=== PATIENT | male | born 1955 | race Caucasian/White ===

== ENCOUNTER → 2019-09-14 11:03 | Outpatient (CLI) | payer MEDICARE, BC | END | disposition home or self-care (01) | LOC: D.CT 11:03 | PROVIDERS: ATTEND Family Medicine | DX: R91.1 Solitary pulmonary nodule (principal) ==

== ENCOUNTER → 2019-11-15 08:03 | Outpatient (CLI) | payer MEDICARE, BC | END | disposition home or self-care (01) | LOC: D.HCCARDIO 08:03 | PROVIDERS: ATTEND Internal Medicine Cardiovascular Disease | DX: R06.02 Shortness of breath (principal) ==

== ENCOUNTER 2019-11-30 06:53 | Outpatient (CLI) | payer MEDICARE, BC ==
[~2019-11-30] VITALS: Ht 195.6 cm; Wt 138.6 kg
--- NOTE | ~2019-11-30 | HEMODYNAMI ---
PATIENT:LAKSHMI HALE MEDICAL RECORD: [id number] : 53 LOCATION:[facility] ADMISSION DATE: 11/30/19 Generatedon:11/30/20199:32 Patient name: LAKSHMI HALE Patient #: [id number] SSN: : 1955 Date of study: 11/30/2019 Page: Of Hemodynamic Procedure Report Patient Data Patient Demographics Procedure consent was obtained First Name: LAKSHMI Gender: Male Last Name: ALEXIA : 1955 [facility] Initial: CHAD Age: 64 year(s) Patient #: [id number] Race: Unknown Additional ID: [id number] Contact details [address]: [address] [place] [address] State: [place] City: [place] Zip code: [address] Past Medical History Allergies: No known allergies Admission Admission Data Admission Date: 11/30/2019 Admission Time: 6:53 Admit Source: Other Lab Results Lab Result Date: 11/30/2019 Lab Result Time: 0:00 Biochemistry Name Units Result Min Max BUN mg/dl 12 --(-*--)-- 7 18 Creatinine mg/dl 0.9 --(-*--)-- 0.6 1.3 eGFR ml/min 90 --(*---)-- 90 120 NONAFRICAN CBC Name Units Result Min Max Hematocrit % 42.5 --(*---)-- 42 54 Hemoglobin g/dl 15 --(-*--)-- 13.5 17.5 Procedure Procedure Types Cath Procedure Diagnostic Procedure LHC LHC w/Coronaries Sedation Charges Moderate Sedation up to 15 minutes Procedure Description Procedure Date Procedure Date: 11/30/2019 Procedure Start Time: 9:11 Procedure End Time: 9:30 Procedure Staff Name Function Saqib Garcia MD Performing Physician Yvette Garnder RT Monitor Thalia Sanchez RT Monitor Radha Leblanc RT Scrub Karis Agrawal RN Nurse Indication Dyspnea Procedure Data Cath Procedure Fluoroscopy Diagnostic fluoroscopy Total fluoroscopy Time: 3.4 time: 3.4 min min Diagnostic fluoroscopy Total fluoroscopy dose: dose: 1041 mGy 1041 mGy Contrast Material Contrast Material Type Amount (ml) Isovue 300 118 Entry Location Entry Primary Successful Side Size Upsize Upsize Entry Closure Meyers ccessful Closure Location (Fr) 1 (Fr) 2 (Fr) Remarks Device Remarks Radial Right 6 Fr Mechanical artery Short Compression Estimated blood loss: 5 ml Diagnostic catheters Device Type Used For End Catheter Placement DIAGNOSTIC [place] 110cm Procedure 5Fr catheter ([id number]) DIAGNOSTIC Nikky 5Fr Procedure catheter ([id number]) Procedure Complications No complications Procedure Medications Medication Administration Route Dosage Oxygen etCO2 Nasal cannula 2 l/min Lidocaine 2% added to field 20 Heparin Flush Bag added to field 2 bags (1000units/500ml NS) 0.9% NaCl I.V. 100 ml/hr Radial Cocktail I.A. 1 syringe (Verapamil 2mg/Nitro 400mcg/Heparin 1500units) Zofran I.V. 4 mg Versed I.V. 2 mg Fentanyl I.V. 50 mcg Versed I.V. 1 mg Fentanyl I.V. 50 mcg Hemodynamics Rest HGB: 15 (g/dl) Heart Rate: 64 (bpm) Pressure Samples Time Site Value (mmHg) Purpose Heart Use Rate(bpm) 9:16 LV 127/0,12 Snapshot 75 Gradients Valve Time Site Site Mean SEP/DFP Peak To Heart Use 1 2 (mmHg) (sec/min) Peak Rate (mmHg) (bpm) Aortic 9:16 LV AO 72 Snapshots Pre Cath Intra NCS Post Cath Vital Signs Time Heart Resp SPO2 etCO2 NIBP (mmHg) Rhythm Pain Sedation Rate (ipm) (%) (mmHg) Status Level (bpm) 8:57:20 62 17 96 0 163/87(137) NSR 0 (11) 10(A) , No pain 9:01:56 61 18 94 28.4 158/85(128) NSR 0 (11) 10(A) , No pain 9:06:26 66 19 92 0 154/84(129) NSR 0 (11) 10(A) , No pain 9:10:59 62 15 94 0 171/82(129) NSR 0 (11) 10(A) , No pain 9:15:35 72 16 95 0 153/83(127) NSR 0 (11) 9(A) , No pain 9:20:02 77 20 94 0 154/87(127) NSR 0 (11) 9(A) , No pain 9:24:42 77 12 95 8.9 165/81(126) NSR 0 (11) 10(A) , No pain 9:29:19 75 14 94 0 153/71(111) NSR 0 (11) 10(A) , No pain Medications Time Medication Route Dose Verified Delivered Reason Notes Effectiveness by by 8:59:02 Oxygen etCO2 2 l/min Saqib Buffie used for Nasal Jose Agrawal RN procedure cannula 8:59:11 Lidocaine 2% added 20ml Saqib Saqib for local to vial Jose Garcia MD anesthetic field 8:59:17 Heparin Flush added 2 bags Saqib Saqib used for Bag to Jose Garcia MD procedure (1000units/500ml field NS) 8:59:27 0.9% NaCl I.V. 100 Saqib Buffie Per ml/hr Jose Agrawal RN physician 9:06:30 Zofran I.V. 4 mg Saqib Buffie Per Jose Agrawal RN physician 9:08:53 Versed I.V. 2 mg Saqib Buffie for sedation Jose Agrawal RN 9:09:00 Fentanyl I.V. 50 mcg Saqib Buffie for sedation Jose Agrawal RN 9:13:39 Versed I.V. 1 mg Saqib Buffie for sedation Jose Agrawal RN 9:13:43 Fentanyl I.V. 50 mcg Saqib Buffie for sedation Jose Agrawal RN 9:15:03 Radial Cocktail I.A. 1 Saqib Saqib for (Verapamil syringe Jose Garcia MD vasodilation 2mg/Nitro 400mcg/Heparin 1500units) Procedure Log Time Note 8:33:02 Diagnostic Cath Status : Elective 8:33:26 Indication : Dyspnea 8:34:32 Admit Source: Other 8:34:37 Time tracking: Regular hours (M-F 7:00 - 5:00) 8:34:42 Plan of Care:Hemodynamics will remain stable., Cardiac rhythm will remain stable., Comfort level will be maintained., Respiratory function will remain adequate., Patient/ family verbilizes understanding of procedure., Procedure tolerated without complication., Recovers from procedure without complications.. 8:39:27 Procedure Status Elective Heart Cath (OP). 8:41:58 Risk of Mortality: 0.1 8:42:04 Risk of blood transfusion: 0.3 8:42:09 Risk of RE: 0.3 8:43:50 Stress Test: yes; abnormal abnormal /inferior 8:44:08 Yvette Gardner RT(R) sent for patient. Start room use. 8:46:17 Patient allergic to No known allergies 8:48:44 Patient received from Pre/Post Procedure Room to CCL 1 Alert and oriented. Tansferred to table in Supine position. 8:48:51 Signed procedure consent form obtained from patient. 8:48:53 Warm blankets applied, and zaria hugger turned on for patient comfort. 8:48:54 Correct patient and procedure confirmed by team. 8:48:57 ECG and BP/O2 sat monitors applied to patient. 8:55:51 Vital chart was started 8:56:16 Baseline sample Acquired. 8:56:25 Rhythm: sinus rhythm 8:56:27 Full Disclosure recording started 8:56:29 8:56:39 H&P Date Dictated: 11/30/2019 H&P Addendum completed by physician on day of procedure. (MUST COMPLETE FOR ALL OUTPATIENTS). 8:56:41 Pre-procedure instructions explained to patient. 8:56:42 Pre-op teaching completed and patient verbalized understanding. 8:56:45 Family in patients room. 8:56:50 Patient NPO since Midnight. 8:57:00 Is the patient allergic to Iodine/contrast media? No. 8:57:04 Was the patient premedicated? Yes 8:57:07 Is patient on blood thinner?No 8:57:13 Patient diabetic? No. 8:57:16 ----Pre-sedation anethsthesia assessment.---- 8:57:28 Previous problem with sedation/anesthesia? Yes nausea 8:57:32 Snore? Yes 8:57:35 Sleep apnea? Yes 8:57:39 Deviated septum? No 8:57:42 Opens mouth fully? Yes 8:57:46 Sticks out tongue? Yes 8:58:00 Airway obstruction? Yes sleeps with cpap 8:58:08 Dentures? Yes in tight 8:58:45 Pre procedure: right dorsailis pedis pulse 2+ Normal; easily identifiable; not easily obliterated 8:58:52 Modified Mukund's test Ulnar > 7 seconds. 8:58:56 Patient pain scale 0/10 ?. 8:59:02 Oxygen 2 l/min etCO2 Nasal cannula was administered by Karis Agrawal RN; used for procedure; Verbal order read back and verified. 8:59:06 IV patent on arrival in left wrist with 0.9% NaCl at [facility]. 8:59:11 Lidocaine 2% 20ml vial added to field was administered by Saqib Garcia MD; for local anesthetic; Verbal order read back and verified. 8:59:17 Heparin Flush Bag (1000units/500ml NS) 2 bags added to field was administered by Saqib Garcia MD; used for procedure; Verbal order read back and verified. 8:59:27 0.9% NaCl 100 ml/hr I.V. was administered by Karis Agrawal RN; Per physician; Verbal order read back and verified. 9:00:01 Lab Result : BUN 12 mg/dl 9:00:01 Lab Result : Creatinine 0.9 mg/dl 9:00:01 Lab Result : eGFR NONAFRICAN 90 ml/min 9:00:01 Lab Result : Hemoglobin 15 g/dl 9:00:01 Lab Result : Hematocrit 42.5 % 9:00:09 Lab results completed and on chart. 9:00:15 Right Radial & Right Groin area was prepped with chlora-prep and draped in sterile fashion 9:00:21 Alarms reviewed by R. N. 9:00:22 Sharps counted by scrub and verified by R.N. 9:05:54 Zero performed for pressure channel P1 9:06:05 Physician arrived 9:06:06 --------ALL STOP TIME OUT------ 9:06:08 Final Timeout: patient, procedure, and site verified with staff and physician. All members of the team are in agreement. 9:06:10 Right Radial & Right Groin site verified by team. 9:06:18 Fire Safety Assessment: A--An alcohol-based skin anteseptic being used preoperatively., C--Open oxygen or nitrous oxide is being used., D--An ESU, laser, or fiber-optic light is being used. 9:06:23 Physical assessment completed. ASA score P 2 - A patient with mild systemic disease as per Saqib Garcia MD. 9:06:29 1) 90+ Normal kidney functon but urine findings or structural abnormalities or genetic trait point to kidney disease. 9:06:30 Zofran 4 mg I.V. was administered by Karis Agrawal RN; Per physician; Verbal order read back and verified. 9:06:36 Maximum allowable contrast dose (3.7 X eGFR X 0.75)250 ml. 9:06:43 Sedation plan: IV Moderate Sedation Medication:Versed, Fentanyl 9:07:27 Use device set Radial Dx or PCI 9:07:32 ACIST Syringe (50495) opened to sterile field. 9:07:32 Medline Cath Pack ([id number]) opened to sterile field. 9:07:34 Bag Decanter (2002S) opened to sterile field. 9:07:37 ACIST Hand Control (91732) opened to sterile field. 9:07:38 ACIST Manifold (80412) opened to sterile field. 9:07:43 MBrace Wrist Support ([id number]) opened to sterile field. 9:07:44 NEEDLE Cook 21G 4cm Radial ([id number]) opened to sterile field. 9:07:46 EMERALD Guide Wire (946-771) opened to sterile field. 9:07:48 SHEATH 6FR RAIN ([id number]) opened to sterile field. 9:08:53 Versed 2 mg I.V. was administered by Karis Agrawal RN; for sedation; Verbal order read back and verified. 9:09:00 Fentanyl 50 mcg I.V. was administered by Karis Agrawal RN; for sedation; Verbal order read back and verified. 9:10:29 Zero performed for pressure channel P1 9:11:37 Procedure started. 9:11:58 Local anesthetic to right radial artery with Lidocaine 2% by Saqib Garcia MD.INITIAL ACCESS ONLY 9:13:39 Versed 1 mg I.V. was administered by Karis Agrawal RN; for sedation; Verbal order read back and verified. 9:13:43 Fentanyl 50 mcg I.V. was administered by Karis Agrawal RN; for sedation; Verbal order read back and verified. 9:14:31 A 6 Fr Short sheath was inserted into the Right Radial artery 9:14:59 A DIAGNOSTIC [place] 110cm 5Fr catheter ([id number]) was advanced over the wire and used for Procedure. 9:15:03 Radial Cocktail (Verapamil 2mg/Nitro 400mcg/Heparin 1500units) 1 syringe I.A. was administered by Saqib Garcia MD; for vasodilation; Verbal order read back and verified. 9:15:26 Injector settings: Ml/sec: 5, Volume: 15, 9:15:47 LV hemodynamics recorded. 9:16:22 LV gram done using HSU 9:16:38 EF : 60 % 9:17:21 RCA angiography performed. 9:17:30 Injector settings: Ml/sec: 3, Volume: 6, 9:18:55 LCA angiography performed. 9:20:02 Catheter exchanged over wire. 9:20:25 A DIAGNOSTIC Nikky 5Fr catheter ([id number]) was advanced over the wire and used for Procedure. 9:21:59 LCA angiography performed. 9:22:11 Injector settings: Ml/sec: 4, Volume: 8, 9:24:47 Catheter removed. 9:25:26 Procedure ended.(Physican Out) 9:25:48 ZEPHYR REGULAR TR BAND ([id number]) opened to sterile field. 9:26:06 Sheath removed intact; hemostasis achieved with Mechanical Compression to the Right Radial artery. 9:26:27 Contrast amount:Isovue 300 118ml. 9:26:41 Fluoroscopy time 03.40 minutes. 9::57 Fluoroscopy dose: 1041 mGy 9:26:57 Flurop Dose total: 1041 9:27:08 Dose Area Product 59563 mGy/cm. 9:27:13 Maximum allowable dose exceeded? No. 9:27:15 Sharps counted by scrub and verified by R.N. 9:27:22 [place] band inflated with 10cc of air. 9:27:25 Insertion/operative site no bleeding no hematoma. 9:27:35 Post right radial artery:stable 9:27:40 Post Procedure Pulses reassessed and unchanged 9:27:45 Post-procedure physical assessment completed. ASA score P 2 - A patient with mild systemic disease as per Saqib Garcia MD. 9:28:00 Post procedure rhythm: unchanged. 9:28:05 Estimated blood loss: 5 ml 9:28:08 Post procedure instruction explained to patient.Patient verbalizes understanding. 9:28:09 Patient needs reinforcement of post procedure teaching. 9:29:06 Procedure type changed to Cath procedure, Diagnostic procedure, LHC, C w/Coronaries, Sedation Charges, Moderate Sedation up to 15 minutes 9:29:12 Procedure and supply charges have been captured, reviewed, submitted and are correct. 9:29:56 Procedure Complication : No complications 9:30:01 Vital chart was stopped 9:30:04 [facility] Findings: mild to moderate CAD (<70%) 9:30:10 Operative report dictated upon procedure completion. 9:30:11 See physician's report for complete and final results. 9:30:14 Report given to Pre/Post Procedure Room. 9:30:20 Patient transfered to Pre/Post Procedure Room with Stretcher. 9:30:24 Procedure ended. 9:30:24 Full Disclosure recording stopped Device Usage Item Name Manufacture Quantity Catalog Hospital Part Current Minima l Lot# / Number Charge Number Stock Stock Serial# Code ACIST Acist 1 [id number] 166096 230045 [id number] 20 Syringe Medical (04143) Systems Inc Medline Medline 1 [id number] 813515 74903 949274 5 Cath Pack ([id number]) Bag Microtek 1 2001S 959961 80183 415086 5 Decanter Medical Inc. () ACIST Hand Acist 1 62581 911594 449227 829610 5 Control Medical (15389) Systems Inc ACIST Acist 1 39760 850143 524639 311393 5 Manifold Medical (14733) Systems Inc MBrace Advanced 1 140-0250-00 450790 10627 262404 5 Wrist Vascular Support Dynamics ([id number]) NEEDLE Cook Cook Medical 1 [id number] 829039 631269 346923 5 21G 4cm Radial ([id number]) EMERALD Cardinal 1 210-393 399793 236420 390768 5 Guide Wire [facility] (492-251) SHEATH 6FR Cardinal 1 [id number] 164151 6226467 588916 5 [facility] (4462688) DIAGNOSTIC Terumo 1 40-8030 965691 808440 899965 5 [place] 110cm 5Fr catheter (466724) DIAGNOSTIC Terumo 1 40-3479 271666 376009 219639 5 Nikky 5Fr catheter (807113) ZEPHYR Cardinal 1 804786 403025 6197316 526712 5 REGULAR TR Health BAND (339531) Signature Audit [place]ansom Stage Time Signature Unsigned Intra-Procedure 11/30/2019 Thalia 9:31:21 AM Laura RT(R) (CV) Intra-Procedure 11/30/2019 Karis Agrawal RN 9:32:02 AM Intra-Procedure 11/30/2019 Saqib Garcia MD 9:32:38 AM [facility] [address] [facility] [place] [address]
[2019-11-30] MEDS ORDERED: PROSCAR5 MG PO (07:28)
[2019-11-30] MEDS ORDERED: HYTRIN10 MG PO (07:28)
[2019-11-30 07:46] VITALS: BP 146/79; Ht 195.6 cm; Wt 138.6 kg
[2019-11-30 07:54] LABS: BASOPHILS 0.5 % (0-2); EOSINOPHILS 4.8 % (0-7); HEMATOCRIT 42.5 % (42.0-54.0); IMMATURE GRANULOCYTES 0.2 % (0-5); LYMPHOCYTES 36.1 % (15-50); MCHC 35.3 g/dL (31.0-37.0); MCV 90.6 fL (80.0-100.0); MEAN PLATELET VOLUME 10.1 fL (7.4-10.4); MONOCYTES 7.4 % (2-11); PLATELET COUNT 196 10x3/uL (130-400); RBC 4.69 10x6/uL (4.20-6.10); RDW 12.5 % (11.5-14.5); WBC 5.8 10x3/uL (4.8-10.8)
[2019-11-30 08:07] LABS: ALT (SGPT) 56 U/L (10-68); CALC OSMOLALITY 281 mosm/kg (275-300); CALCIUM 8.3 mg/dL (8.5-10.1); CARBON DIOXIDE 26.9 mmol/L (21.0-32.0); CHLORIDE - SERUM 105 mmol/L (98-107); CHOL - HDL RATIO 3.8 ratio (2.3-4.9); CHOLESTEROL, TOTAL 193 mg/dL (0-200); CREATININE - SERUM 0.9 mg/dL (0.6-1.3); GLUCOSE 111 mg/dL (74-106); HDL CHOLESTEROL 51 mg/dL (32-96); LDL CHOLESTEROL 96 mg/dL (0-100); LDL-HDL RATIO 1.9 ratio (1.5-3.5); POTASSIUM - SERUM 3.9 mmol/L (3.5-5.1); SODIUM 141 mmol/L (136-145); TRIGLYCERIDE 234 mg/dL (30-200); UREA NITROGEN 12 mg/dL (7-18); eGFR NON AFRICAN AMERICAN 90 mL/min (90-120)
--- NOTE | 2019-11-30 09:35 | NUR ---
PT RECEIVED VIA STRETCHER FROM ROPE CUTTER FOR RECOVERY. PT VERY DROWSY BUT VERBALLY AROUSABLE. IV PATENT INFUSING VIA ORDERS TO L ARM. PT DENIES PAIN OR DISCOMFORT. HR NSR RATE 73, BP 111/70, RR 10, SAT 94. ZYPHER BAND AND IMMOBILIZER TO R WRIST, DRESSING CDI NO BLEEDING OR S/S HEMATOMA NOTED. ARM PINK AND WARM, CAP REFILL BRISK. CALL LIGHT IN REACH, AT BEDSIDE.
--- NOTE | 2019-11-30 10:00 | NUR ---
PT STILL PRETTY DROWSY, BUT VERBALLY AROUSABLE WHEN SPOKE TOO. ZBAND AND IMMOBILIER IN PLACE, DRESSING CDI NO S/S HEMATOMA NOTED. HR 58, BP 118/71, SAT 93 ON ROOM AIR. FAMILY AT BS, CALL LIGHT IN REACH
--- NOTE | 2019-11-30 10:36 | NUR ---
3 CC AIR REMOVED FROM Z BAND, NO BLEEDING OR S/S HEMATOMA NOTED. VSS. PT DENIES PAIN OR NEEDS. CALL LIGHT IN REACH
--- NOTE | 2019-11-30 10:49 | NUR ---
3 ADD'L CC AIR REMOVED FROM ZBAND W/O BLEEDING NOTED. VSS. CALL LIGHT IN REACH
--- NOTE | 2019-11-30 11:10 | NUR ---
REMAINING AIR REMOVED FROM ZBAND, NO BLEEDING OR S/S HEMATOMA NOTED. VSS. PT DENIES PAIN OR NEEDS. CALL LIGHT IN REACH
--- NOTE | 2019-11-30 11:20 | NUR ---
SANDWICH TRAY SERVED PER PT REQUEST.
--- NOTE | 2019-11-30 11:30 | NUR ---
IV REMOVED W CATH INTACT, MONITORS REMOVED. PT UP TO DRESS FOR DISCHARGE
--- NOTE | 2019-11-30 11:49 | NUR ---
2X2 AND TEGADERM DRESSING APPLIED TO R WRIST. IMMOBILIZER REPOSITIONED. PT AMBULATED TO BR, VOIDING W/O DIFFICULITY. PT THEN DISCHARGED VIA WC TO WAITING IN PRIVATE VEHICLE. PT HAD ALL BELONGINGS AND DISCHARGE PAPERWORK
== END 2019-11-30 11:50 | disposition home or self-care (01) ==
LOC: D.CATH 06:53
PROVIDERS: ATTEND Internal Medicine Cardiovascular Disease
DX: R06.00 Dyspnea, unspecified (principal); I20.9 Angina pectoris, unspecified; R94.30 Abnormal result of cardiovascular function study, unspecified; Z82.49 Family history of ischemic heart disease and other diseases of the circulatory system; I45.19 Other right bundle-branch block